=== PATIENT | female | born 1940 | race Caucasian/White ===

== ENCOUNTER 2016-12-01 15:28 | Emergency (ER) | payer OTHER ==
[~2016-12-01] VITALS: Ht 129.5 cm; Wt 49.0 kg
[~2016-12-01 15:28] MED LIST: ESOM1CAP6 PO; HYDR2TAB PO; POTA-243 PO; PRED5 PO; [UNRECOGNIZED DRUG - CODE]
[2016-12-01 15:33] VITALS: BP 109/73; PULSE 77; RESP 16; TEMP 98.2; O2SAT 94
[2016-12-01] MEDS ORDERED: LOVA20TA PO (15:51)
[2016-12-01] MEDS ORDERED: HYDR2TAB PO (15:51)
[2016-12-01] MEDS ORDERED: K-TA10TA PO (15:51)
[2016-12-01] MEDS ORDERED: [UNRECOGNIZED DRUG - CODE] PO (15:51)
[2016-12-01] MEDS ORDERED: ESOM0.1C PO (15:51)
[2016-12-01] MEDS ORDERED: NEXI20CA PO (15:51)
--- NOTE | 2016-12-01 16:04 | PD ---
HPI Chief Complaint: Injury Time Seen by Provider: 15:45 Travel History International Travel<30 days: No Contact w/Intl Traveler<30days: No Traveled to known affect area: No History of Present Illness HPI Patient presents to the emergency department requesting Ring removal from her right ring finger. Patient has history of rheumatoid arthritis and has intermittent swelling of her finger joints. She reports she had a minor twisting injury to the finger yesterday and the PIP joint began to swell making her rings tight. She was unable to remove the rings at home. She has mild pain in the finger, constant, 3-10 severity. She reports normal sensation in the digit. The extremity has a brisk cap refill. PFSH Past Medical History Narrative Medical Significant for rheumatoid arthritis GERD: Yes Past Surgical History Abdominal Surgery: Yes (3/4 STOMACH REMOVED) Other Surgery: Yes (TOE VASCULAR REPAIR) Social History Alcohol Use: Yes (2/DAY) Tobacco Use: Yes (3/4 PPD) Allergies-Medications (Allergen,Severity, Reaction): Coded Allergies: Penicillin (Verified Allergy, Intermediate, ITCH, 12/01/16) Reported Meds & Prescriptions Reported Meds & Active Scripts Active Reported Lovastatin 20 Mg Tab 20 Mg PO DAILY K-Tab (Potassium Chloride) 10 Meq Tab 10 Meq PO DAILY Hydromorphone (Hydromorphone HCl) 2 Mg Tab 2 Mg PO Q6H PRN Nexium (Esomeprazole DR) 20 Mg Capdr 20 Mg PO DAILY Travel Sickness (Dimenhydrinate) 50 Mg Tab 50 Mg PO Q6H PRN Review of Systems Except as stated in HPI: all other systems reviewed are Neg Physical Exam Narrative GENERAL: Well-nourished, well-developed patient. SKIN: Focused skin assessment warm/dry. HEAD: Normocephalic. EYES: No scleral icterus. No injection or drainage. NECK: Supple, trachea midline. No JVD or lymphadenopathy. MUSCULOSKELETAL: No cyanosis. Right fourth digit: Patient has 5 rings on digit. Mild swelling and PIP joint. Digit is warm with a brisk cap refill. Data Data Last Documented VS Vital Signs Date Time Temp Pulse Resp B/P Pulse Ox O2 Delivery O2 Flow Rate FiO2 12/01/16 15:33 98.2 77 16 109/73 94 MDM Medical Decision Making Medical Screen Exam Complete: Yes Emergency Medical Condition: Yes Differential Diagnosis Minor finger sprain versus RA causing PIP joint swelling Narrative Course 76 rolled female presents emergency department for ring removal on her right fourth digit. Patient has a history of RA with intermittent finger joint swelling. She reports a minor injury yesterday twisting of the right fourth digit which caused little bit of swelling and making her unable to get her rings off. Patient has currently 5 rings on that digit. The digit is neurovascularly intact. Ring will be removed with electric ring cutter. Largest most distal Ring removed with electric ring cutter. The remaining 4 rings on the finger are freely mobile but unable to get over the swollen PIP joint. Patient was encouraged to have these rings cut off. Patient refused. She stated she wanted to wait for the swelling to go down and then remove the rings herself. I discussed the possibility that the joint may continue to swell making future removal even more difficult than today this could potentially lead to digit ischemia in severe cases. She verbalizes understanding and decides to not have the rings cut off. She was encouraged to come back if she had any increasing pain and increasing swelling change in color or sensation of the digit. She agrees to plan Diagnosis Primary Impression: Finger sprain Qualified Code: S63.635A - Sprain of interphalangeal joint of left ring finger , initial encounter Referrals: Primary Care Physician Additional Instructions: Ice and elevate the extremity. Remove the rings and swelling goes down. Return to the emergency department if you have increasing pain or swelling or change in color sensation of the digit Disposition: 01 DISCHARGE HOME Condition: Stable Gabriela Monaco Dec 01, 2016 16:04
== END 2016-12-01 16:35 | disposition home or self-care (01) ==
LOC: PHEFT 15:28
DX: S63.635A Sprain of interphalangeal joint of left ring finger, initial encounter (principal); X58.XXXA Exposure to other specified factors, initial encounter; M06.9 Rheumatoid arthritis, unspecified
CPT/HCPCS: 99282

== ENCOUNTER 2016-12-23 16:49 | Inpatient (IN) | payer OTHER, MEDICARE ==
[~2016-12-23 16:49] MED LIST changes: -ESOM1CAP6 PO; +K-TA10TA PO; +LOVA20TA PO; +NEXI20CA PO; -POTA-243 PO; -PRED5 PO; -[UNRECOGNIZED DRUG - CODE]; +[UNRECOGNIZED DRUG - CODE] PO
[2016-12-23 17:00] VITALS: BP 131/75; PULSE 102; RESP 18; TEMP 98.4; O2SAT 95
--- NOTE | 2016-12-23 17:18 | PD ---
HPI Chief Complaint: weakness Time Seen by Provider: 17:05 Travel History International Travel<30 days: No Contact w/Intl Traveler<30days: No Traveled to known affect area: No History of Present Illness HPI 76-year-old female is brought by ambulance. Her daughter had left the house around 1:00. She get back to the house around 4. Her mother was very hot and sweaty. The room itself was quite hot. The patient does smoke about a pack a day and goes outside to smoke The daughter says that she seemed to have some slurring of her speech and she noted that the left side of her face was not walking working very well. She tried to stand her up and she had trouble walking. Patient is generally weak and does have trouble walking but she was unable to stand at all earlier. The patient does not believe that she is any weaker than usual. She denies any headache. She was slightly confused and able to walk year. Her daughter says that she is normally not at all confused. Patient denies any headache. She has no history of stroke or heart disease. She does have frequent dizziness which she takes meclizine. ANOther family member has raised concerned that she didn't seem right even yesterday. PFSH Past Medical History Arthritis: Yes (RA,OA) High Cholesterol: Yes Diminished Hearing: No GERD: Yes Past Surgical History Abdominal Surgery: Yes (3/4 STOMACH REMOVED) Other Surgery: Yes (TOE VASCULAR REPAIR, Fempop) Social History Alcohol Use: Yes (2/DAY) Tobacco Use: Yes (3/4 PPD) Substance Use: No Allergies-Medications (Allergen,Severity, Reaction): Coded Allergies: Penicillin (Verified Allergy, Intermediate, ITCH, 12/01/16) Reported Meds & Prescriptions Reported Meds & Active Scripts Active Reported Hydromorphone (Hydromorphone HCl) 2 Mg Tab 2 Mg PO Q6H PRN One Daily Multivitamin (Multivitamin) 1 Each Tablet Potassium 99 Mg Tablet Mobic (Meloxicam) 7.5 Mg Tab 7.5 Mg PO BID Pantoprazole (Pantoprazole Sodium) 40 Mg Tab 40 Mg PO DAILY Diphenhydramine (Diphenhydramine HCl) 25 Mg Cap 25 Mg PO DAILY Lovastatin 20 Mg Tab 40 Mg PO DAILY Travel Sickness (Dimenhydrinate) 50 Mg Tab 50 Mg PO Q6H PRN Review of Systems General / Constitutional: No: Fever Eyes: No: Diploplia, Blurred Vision HENT: Positive: Vertigo, No: Headaches Cardiovascular: No: Chest Pain or Discomfort, Palpitations Respiratory: No: Cough, Shortness of Breath Gastrointestinal: No: Vomiting, Diarrhea Genitourinary: No: Urgency, Frequency Musculoskeletal: Positive: Arthralgias, No: Myalgias Skin: No Rash, No Itching Neurologic: Positive: Weakness, Focal Abnormalities, Change in Mentation, No: Syncope Psychiatric: No: Anxiety, Depression Endocrine: No: Heat Intolerance Hematologic/Lymphatic: No: Easy Bruising Physical Exam Narrative GENERAL: Elderly female in no acute distress SKIN: Focused skin assessment warm/dry. HEAD: Atraumatic. Normocephalic. EYES: Pupils equal and round. No scleral icterus. No injection or drainage. ENT: No nasal bleeding or discharge. Mucous membranes pink and moist. NECK: Trachea midline. No JVD. CARDIOVASCULAR: Regular rate and rhythm. No murmur appreciated. RESPIRATORY: No accessory muscle use. Clear to auscultation. Breath sounds equal bilaterally. GASTROINTESTINAL: Abdomen soft, non-tender, nondistended. Hepatic and splenic margins not palpable. MUSCULOSKELETAL: No obvious deformities. No clubbing. No cyanosis. No edema. NEUROLOGICAL: Awake and alert. He does appear that the left side of the mouth does not move as much of the right side . She closes both eyes well, digital sales assistant are equal. There is no drift of the arms. She can hold both legs against gravity. We did stand the patient up and tested her gait. She has a slow shuffling gait which the daughter says is her normal gait but is better than she did at home. Patient is unable to give the year. She believes is 2076. Her speech appears clear at this time her daughter says is slightly slurred though not as severe as it was at home PSYCHIATRIC: Appropriate mood and affect; insight and judgment normal. Data Data Last Documented VS Vital Signs Date Time Temp Pulse Resp B/P Pulse Ox O2 Delivery O2 Flow Rate FiO2 12/23/16 18:35 16 98 Room Air 12/23/16 18:35 78 165/72 12/23/16 17:00 98.4 Orders Electrocardiogram (12/23/16 17:05) Complete Blood Count With Diff (12/23/16 17:05) Comprehensive Metabolic Panel (12/23/16 17:05) Prothrombin Time / Inr (Pt) (12/23/16 17:05) Act Partial Throm Time (Ptt) (12/23/16 17:05) Urinalysis - C+S If Indicated (12/23/16 17:05) Thyroid Stimulating Hormone (12/23/16 17:05) Ct Brain W/O Iv Contrast(Rout) (12/23/16 17:05) Aspirin (Aspirin) (12/23/16 17:45) Mri Brain W/O Contrast (12/23/16 17:39) Mra Brain W/O Contrast (Cow) (12/23/16 17:39) Mra Carotids W Contrast (12/23/16 17:39) Admit Order (Ed Use Only) (12/23/16 18:37) Labs Laboratory Tests Test 12/23/16 17:26 White Blood Count 13.5 TH/MM3 Red Blood Count 4.50 MIL/MM3 Hemoglobin 13.7 GM/DL Hematocrit 41.1 % Mean Corpuscular Volume 91.3 FL Mean Corpuscular Hemoglobin 30.3 PG Mean Corpuscular Hemoglobin 33.2 % Concent Red Cell Distribution Width 15.8 % Platelet Count 256 TH/MM3 Mean Platelet Volume 7.2 FL Neutrophils (%) (Auto) 82.0 % Lymphocytes (%) (Auto) 6.4 % Monocytes (%) (Auto) 6.6 % Eosinophils (%) (Auto) 0.3 % Basophils (%) (Auto) 4.7 % Neutrophils # (Auto) 11.1 TH/MM3 Lymphocytes # (Auto) 0.9 TH/MM3 Monocytes # (Auto) 0.9 TH/MM3 Eosinophils # (Auto) 0.0 TH/MM3 Basophils # (Auto) 0.6 TH/MM3 CBC Comment DIFF FINAL Differential Comment Prothrombin Time 10.4 SEC Prothromb Time International 0.9 RATIO Ratio Activated Partial 24.4 SEC Thromboplast Time Sodium Level 139 MEQ/L Potassium Level 4.0 MEQ/L Chloride Level 106 MEQ/L Carbon Dioxide Level 24.7 MEQ/L Anion Gap 8 MEQ/L Blood Urea Nitrogen 20 MG/DL Creatinine 0.98 MG/DL Estimat Glomerular Filtration 55 ML/MIN Rate Random Glucose 110 MG/DL Calcium Level 9.1 MG/DL Total Bilirubin 0.4 MG/DL Aspartate Amino Transf 25 U/L (AST/SGOT) Alanine Aminotransferase 16 U/L (ALT/SGPT) Alkaline Phosphatase 65 U/L Total Protein 7.3 GM/DL Albumin 3.2 GM/DL Thyroid Stimulating Hormone 1.610 uIU/ML 3rd Gen [facility] Medical Decision Making Medical Screen Exam Complete: Yes Emergency Medical Condition: Yes Medical Record Reviewed: Yes Differential Diagnosis A stat CT scan was obtained. There is no acute hemorrhage or mass effect. There is a small area of decreased attenuation involving the left frontal area which could represent small area of edema or be related to a remote insult. Aspirin has been given. I don't think the patient is a candidate for TPA in the timing is not at all clear. In addition her daughter seems to feel that she is getting better. Narrative Course Differential includes CVA, TIA, heat exhaustion. Patient does have some residual left-sided numbness of her face. She has been given aspirin. She'll be admitted for further evaluation the timing of these events are quite uncertain. The . daughter thinks she was normal at 1 in the afternoon though another family member is not so sure. In addition the patient has had considerable improvement so I do not think she is a candidate for TPA. She does have some residual weakness so this is probably not a TIA at this time Diagnosis Primary Impression: CVA (cerebral vascular accident) Oliver Vora MD Dec 23, 2016 17:17
--- NOTE | 2016-12-23 17:29 | RADRPT ---
EXAM DATE/TIME: 12/23/2016 17:01 [facility] COMPARISON: No previous studies available for comparison. INDICATIONS : Left sided facial drooping and slurred speech now resolved. RADIATION DOSE: 60.80 CTDIvol (mGy) MEDICAL HISTORY : None SURGICAL HISTORY : None. ENCOUNTER: Initial ACUITY: 1 day PAIN SCALE: 0/10 LOCATION: cranial TECHNIQUE: Multiple contiguous axial images were obtained of the head. Using automated exposure control and adj ustment of the mA and/or kV according to patient size, radiation dose was kept as low as reasonably a chievable to obtain optimal diagnostic quality images. DICOM format image data is available electro nically for review and comparison. FINDINGS: CEREBRUM: The ventricles are normal for age. No evidence of midline shift, mass lesion, or hemorrhage. There i s a subtle small area of decreased attenuation involving the left frontal lobe seen on images numbers 15 and 16 measuring up to approximately 2 cm in greatest diameter. No extra-axial fluid collections are seen. POSTERIOR FOSSA: The cerebellum and brainstem are intact. The 4th ventricle is midline. The cerebellopontine angle i s unremarkable. EXTRACRANIAL: The visualized portion of the orbits is intact. SKULL: The calvaria is intact. No evidence of skull fracture. CONCLUSION: 1. No acute hemorrhage or mass effect. 2. There is an apparent small area of decreased attenuation involving the left frontal lobe which cou ld represent a small area of edema or be related to a remote insult. Drew Kiran MD on December 23, 2016 at 17:25 Board Certified Radiologist. This report was verified electronically.
[2016-12-23] MEDS ORDERED: ASPIRIN 325 MG TAB PO ONE (17:45)
[2016-12-23] MEDS ORDERED: ONE-TAB14 (17:47)
[2016-12-23] MEDS ORDERED: PANT40TA3 PO (17:47)
[2016-12-23] MEDS ORDERED: MOBI7.5T PO (17:47)
[2016-12-23] MEDS ORDERED: DIPH25CA PO (17:47)
[2016-12-23] MEDS ORDERED: POTA99TA4 (17:47)
[2016-12-23 17:50] LABS: AUTOMATED NEUTROPHIL # 11.1 TH/MM3 (1.8-7.7); BASOPHIL # 0.6 TH/MM3 (0-0.2); BASOPHIL % 4.7 % (0.0-2.0); EOSINOPHIL % 0.3 % (0.0-4.0); HEMATOCRIT 41.1 % (35.0-46.0); LYMPH % 6.4 % (9.0-44.0); LYMPHOCYTE # 0.9 TH/MM3 (1.0-4.8); MEAN CELL VOLUME 91.3 FL (80.0-100.0); MEAN CORPUSCULAR HEMOGLOBIN 30.3 PG (27.0-34.0); MEAN CORPUSCULAR HGB CONC 33.2 % (32.0-36.0); MONO % 6.6 % (0.0-8.0); PLATELET COUNT 256 TH/MM3 (150-450); RED CELL DISTRIBUTION WIDTH 15.8 % (11.6-17.2); WHITE BLOOD COUNT 13.5 TH/MM3 (4.0-11.0)
[2016-12-23 17:54] LABS: CHLORIDE 106 MEQ/L (98-107); SODIUM (NA) 139 MEQ/L (136-145)
[2016-12-23] MEDS ORDERED: HYDR2TAB PO (17:56)
[2016-12-23 17:57] LABS: ANION GAP 8 MEQ/L (5-15); BICARBONATE 24.7 MEQ/L (21.0-32.0); BLOOD UREA NITROGEN 20 MG/DL (7-18)
[2016-12-23 17:59] LABS: APTT (PATIENT) 24.4 SEC (24.3-30.1); INTERNATIONAL NORMALIZED RATIO 0.9 RATIO; PROTHROMBIN TIME - PATIENT 10.4 SEC (9.8-11.6)
[2016-12-23 18:00] LABS: ALT (GPT) 16 U/L (10-53); AST (GOT) 25 U/L (15-37)
[2016-12-23 18:01] LABS: GLOMERULAR FILTRATION RATE 55 ML/MIN (>89)
[2016-12-23 18:02] LABS: TOTAL BILIRUBIN ADULT 0.4 MG/DL (0.2-1.0)
[2016-12-23 18:03] LABS: ALKALINE PHOSPHATASE 65 U/L (45-117)
[2016-12-23 18:04] VITALS: BP 144/83; PULSE 70; RESP 16; O2SAT 95
[2016-12-23 18:05] LABS: HEMO FLAGS DIFF FINAL
[2016-12-23 18:35] VITALS: BP 165/72; PULSE 78; RESP 16; O2SAT 98
--- NOTE | 2016-12-23 19:13 | RADRPT ---
EXAM DATE/TIME: 12/23/2016 18:55 [facility] COMPARISON: MRI BRAIN W/O CONTRAST, December 23, 2016, 18:55. INDICATIONS : Slurred speech. Weakness. Abnormal CT demonstrating low attenuation area in the lef t frontal lobe. MEDICAL HISTORY : Hypertension. Rheumatoid arthritis. SURGICAL HISTORY : Cholecystectomy. Gastric bypass. ENCOUNTER: Initial ACUITY: 1 day PAIN SCORE: 0/10 LOCATION: cranial Please note a normal MRA of the brain does not entirely exclude the possibility of a small aneurysm, nor the possibility of distal intracranial vessel disease. TECHNIQUE: 3D time of flight MRA was performed. Source images, multiplanar STS MIP, and 3D volum e MIP reconstructions were reviewed. FINDINGS: There is excellent visualization of the major intracranial arteries out to the second-order branch ve ssels. There is no evidence for aneurysm, vessel truncation or stenosis, and no evidence for vascula r malformation. CONCLUSION: Unremarkable exam. Drew Kiran MD on December 23, 2016 at 19:10 Board Certified Radiologist. This report was verified electronically.
--- NOTE | 2016-12-23 19:19 | RADRPT ---
EXAM DATE/TIME: 12/23/2016 18:55 [facility] COMPARISON: CT BRAIN W/O CONTRAST, December 23, 2016, 17:01. INDICATIONS : Slurred speech. Abnormal CT demonstrating low attenuation area in the left frontal lobe. Weakness. MEDICAL HISTORY : Hypertension. Rheumatoid arthritis. SURGICAL HISTORY : Cholecystectomy. Gastric bypass. ENCOUNTER: Initial ACUITY: 1 day PAIN SCORE: 0/10 LOCATION: cranial TECHNIQUE: Multiplanar, multisequence MRI of the brain was performed without contrast. FINDINGS: CEREBRUM: The ventricles are normal for age with mild to moderate atrophic change. No evidence of midline shift , mass lesion, hemorrhage or acute infarction. There is a focal area of encephalomalacia and gliosis involving the left frontal lobe corresponding to the abnormality on CT. No extraaxial fluid collectio ns are seen. The pituitary gland and suprasellar cistern are normal in configuration. WHITE MATTER: There is increased signal noted in the centrum semiovale and periventricular white matter consistent with chronic small vessel ischemic change. There is increased signal noted in the left frontal lobe a djacent to the encephalomalacia consistent with gliosis. POSTERIOR FOSSA: The cerebellum and brainstem are intact. The 4th ventricle is midline. The cerebellopontine angle is unremarkable. The cerebellar tonsils are normal in position. DIFFUSION IMAGING: No focal areas of restricted diffusion are seen. No evidence of acute infarction. EXTRACRANIAL: The visualized portions of the orbits and paranasal sinuses are unremarkable. CONCLUSION: 1. Focal area of encephalomalacia and gliosis involving left frontal lobe corresponding to the abnorm ality on CT. 2. No acute hemorrhage, mass or infarction. Drew Kiran MD on December 23, 2016 at 19:14 Board Certified Radiologist. This report was verified electronically.
[2016-12-23] MEDS ORDERED: SODIUM CHLOR 0.9% 1000 ML INJ 1,000 ML IV SCH (19:22)
[2016-12-23] MEDS ORDERED: DEXTROSE 50% IN WATER 50 ML VIAL(D50) IV PUSH PRN (19:30)
[2016-12-23] MEDS ORDERED: SODIUM CHLORIDE 0.9% FLUSH 5 ML FLUSH IV FLUSH PRN (19:30)
[2016-12-23] MEDS ORDERED: GLUCAGON 1 MG/ML VIAL OTHER PRN (19:30)
--- NOTE | 2016-12-23 19:36 | RADRPT ---
EXAM DATE/TIME: 12/23/2016 18:55 [facility] COMPARISON: No previous studies available for comparison. INDICATIONS : Weakness. Slurred speech. CONTRAST: 10 cc Omniscan (gadodiamide) IV MEDICAL HISTORY : Hypertension. Rheumatoid arthritis. SURGICAL HISTORY : Cholecystectomy. Gastric bypass. ENCOUNTER: Initial ACUITY: 1 day PAIN SCORE: 0/10 LOCATION: cranial Known MRI Precautions: Sedation utilized? No Anesthesia present? MRI reaction? If YES, explain: Percent stenosis is calculated using the diameter of the stenotic region over the diameter of the nor mal distal internal carotid artery. TECHNIQUE: Bolus infused MRA of the extracranial circulation was performed using a neurovascular coil. Post pro cessing was performed including rotating subvolume maximum intensity projections of each carotid lexy ry, rotating full volume maximum intensity projections of both carotid arteries, sagittal and coronal sliding thin slab reformations of each carotid artery, and left oblique sliding thin slab reformatio n through the aortic arch to include the origin of the arch branch vessels. FINDINGS: AORTIC ARCH: There is a three vessel origin of the great vessels from the aorta. There is evidence of high grade s tenosis at the origin of the brachiocephalic and left common carotid arteries. The left subclavian ar isiah origin is not well-visualized. RIGHT CAROTID: The common carotid artery is intact. The carotid bulb has a normal configuration with mild plaque no significant stenosis. The internal carotid artery lumen is smooth without stenosis. The external ca rotid artery is intact. LEFT CAROTID: The common carotid artery is intact. The carotid bulb has a normal configuration with mild plaque in no significant stenosis. The internal carotid artery lumen is smooth without stenosis. The external carotid artery is intact. VERTEBRALS: The vertebral arteries have a symmetric diameter. No stenotic lesions are seen. CONCLUSION: 1. High grade stenoses in the origin of the brachiocephalic and left common carotid arteries. The leander gin of the left subclavian artery is not well visualized. 2. Mild plaque in both carotid bulbs with no significant stenosis. Drew Kiran MD on December 23, 2016 at 19:30 Board Certified Radiologist. This report was verified electronically.
[2016-12-23] MEDS ORDERED: GADODIAMIDE PF 287 MG/ML 10 ML VIAL (for RAD MRI) IV ONE (19:43)
[2016-12-23] MEDS: HEPARIN SODIUM - SQ 10,000 UNITS/ML VIAL SQ SCH (20:22)
[2016-12-23] MEDS: INSULIN ASPART SUPPLEMENTAL SCALE SQ SCH (20:32)
[2016-12-23 21:00] VITALS: BP 131/85; PULSE 65; RESP 21; TEMP 98.9; O2SAT 96
[2016-12-23] MEDS ORDERED: SODIUM CHLORIDE 0.9% FLUSH 5 ML FLUSH IV FLUSH SCH (21:00)
[2016-12-23] MEDS ORDERED: HYDROmorphone HCL PF 1 MG/ML VIAL IV PUSH ONE (21:45)
[2016-12-23 22:00] VITALS: PULSE 65
[2016-12-23 22:25] VITALS: O2SAT 98
[2016-12-24] VITALS (15 sets, daily range): BP systolic 90–147; BP diastolic 71–84; PULSE 51–63; RESP 14–27; TEMP 97.8–98.7; O2SAT 94–98
[2016-12-24] MEDS: INSULIN ASPART SUPPLEMENTAL SCALE SQ SCH ×4 (05:27→20:58)
[2016-12-24] MEDS: HEPARIN SODIUM - SQ 10,000 UNITS/ML VIAL SQ SCH ×3 (05:27→20:50)
[2016-12-24] MEDS ORDERED: GLUCAGON 1 MG/ML VIAL OTHER PRN (08:45)
[2016-12-24] MEDS ORDERED: SODIUM CHLORIDE 0.9% FLUSH 5 ML FLUSH IV FLUSH PRN (08:45)
[2016-12-24] MEDS ORDERED: DEXTROSE 50% IN WATER 50 ML VIAL(D50) IV PUSH PRN (08:45)
[2016-12-24] MEDS ORDERED: ASPIRIN 325 MG TAB PO SCH (09:00)
[2016-12-24] MEDS: SODIUM CHLORIDE 0.9% FLUSH 5 ML FLUSH IV FLUSH SCH ×2 (09:00→20:50)
[2016-12-24] MEDS: ASPIRIN EC 325 MG TABEC PO SCH (09:11)
[2016-12-24 09:14] LABS: HDL CHOLESTEROL 67.5 MG/DL (40.0-60.0)
--- NOTE | 2016-12-24 09:31 | MB ---
cc: AALIYAH SRIVASTAVA DATE OF CONSULTATION: 12/24/2016 REASON FOR CONSULTATION Stroke. HISTORY OF PRESENT ILLNESS Ms. White is a very pleasant 76-year-old female who yesterday developed the acute onset of numbness on the left side of her face and also she states the left arm. She felt somewhat weak in the left arm as well and presented to the hospital, to the ER. This morning she feels back to normal, feels her strength is normal on the left and also feels that the numbness has resolved. The patient was last seen normal yesterday at 01:00 p.m. after the daughter left the house. When the daughter returned around 4:00, her mother was hot and diaphoretic, the room itself was hot. At that time the daughter noted slurred speech and the left side of her face was not working well. She had trouble walking. She brought her to the ER. I spoke with Dr. Mi yesterday evening. Because of the time frame she was well outside of the window for TPA consideration or endovascular consideration. This morning she is much better. She denies any stroke symptoms in the past. PAST MEDICAL HISTORY She denies any previous stroke history. Abdominal surgery, three-quarters of stomach removed. Toe vascular repair. ALLERGIES PENICILLIN. MEDICATIONS AT HOME 1. Hydromorphone 2 mg q.6 hours as needed. 2. Multivitamin. 3. Potassium. 4. Mobic. 5. Pantoprazole 40 mg daily. 6. Diphenhydramine 25 mg daily. 7. Lovastatin 20 mg daily. SOCIAL HISTORY She does smoke. NEUROLOGIC EXAMINATION VITAL SIGNS: Blood pressure is 90/71, pulse 62 regular. HIGH CORTICAL FUNCTIONS: equal, reactive. The extraocular movements are intact. On motor examination there is 5/5 strength of all groups in both upper and lower extremities. There is no drift. Fine motor skills are normal. Sensory exam is intact. Reflexes 2+ symmetric. EKG Normal sinus rhythm with occasional supraventricular premature complexes, no sign of atrial fibrillation, however. IMAGING STUDIES She did have a CT of the brain done which showed an area of abnormality in the left frontal lobe area of decreased attenuation. She has since had an MRI of the brain and there is a focal area of encephalomalacia and gliosis involving the left frontal lobe. No acute . The left subclavian artery is not well visualized, mild plaque in both carotid bulbs with no significant stenosis. LABORATORY DATA The white count is 13,500, hemoglobin 13.7, hematocrit 41.1%, platelet count 256,000. Sodium is 139, potassium 4, chloride 106, C02 24.7, BUN is 20, creatinine 0.98, GFR is 55, AST 25, ALT 16. Lipid panel currently pending. PT 10.4, INR 0.9, APTT 24.4. IMPRESSION 1. Probable right hemisphere TIA which is now resolved. 2. Probable old stroke in the left frontal area as evidenced on the MRI finding and CT finding. 3. A high-grade stenosis of the left common carotid artery and left brachiocephalic artery. RECOMMENDATIONS Start aspirin 325 mg daily. Encouraged the patient to stop smoking. If the LDL is elevated would recommend statin therapy. Will get an echocardiogram, monitor cardiac stenosis. However, this is clearly not the cause of her current symptoms. Therefore, I feel outpatient evaluation would be appropriate. The patient states she is not sure that she would agree to any intervention anyway at this time. If no particular cause of her TIA is identified, suggest possible cardiology evaluation as an outpatient to see if she would be a candidate for long-term cardiac technician such as the LIN[employer] recorder. MD TONIE Arndt/[facility] /8:34 AM /9:30 AM
--- NOTE | 2016-12-24 11:12 | HHI.HP ---
HPI [facility] Hospitalists Primary Care Physician Unknown Admission Diagnosis CVA Diagnoses: Chief Complaint: numbness left face and left arm Travel History International Travel<30 Days: No Contact w/Intl Traveler <30 Da: No Traveled to Known Affected Are: No History of Present Illness This is a 76-year-old female with past medical history as below who presents to [facility] complaining of acute onset of numbness of the left side of her face have the left arm. The patient also states she felt weak on the left arm as she states that she could not climb up to her bed. The patient was last seen normal yesterday at 1 PM after her daughter who is at bedside during this interview, states left her in the house. The patient's daughter states that she return about 4 PM and noticed that her mother was hot and diaphoretic, however the recommendation was not on. At the time the patient's daughter noted some slurred speech and some left facial droop as well as difficulty ambulating. She decided then to bring the patient to the emergency department where she was evaluated by the emergency department by means of a CT of the head which is negative for acute stroke but had some findings consistent with an old stroke. They ED physician contacted the neurologist and because of the timeframe she was well outside of the window for TPA consideration or endovascular consideration as well. The patient is morning feels much better, weakness has substantially improved and states that the numbness has also subsided. Otherwise denies any palpitations, dizziness, double vision, blurry vision, chest pain, short of breath, dysuria, abdominal pain. The patient states she has diarrhea but this is chronic and it has been the same way for years. Review of Systems As per HPI, other systems reviewed by me and negative. Past Family Social History Past Medical History Dumping syndrome with chronic diarrhea Chronic back pain Scoliosis Peptic ulcer disease GERD Peripheral arterial disease Hyperlipidemia Past Surgical History Subtotal gastrectomy Cholecystectomy Femoropopliteal bypass of the left lower extremity Left carotid endarterectomy. Reported Medications Reported Meds & Active Scripts Active Reported Hydromorphone (Hydromorphone HCl) 2 Mg Tab 2 Mg PO Q6H PRN One Daily Multivitamin (Multivitamin) 1 Each Tablet Potassium 99 Mg Tablet Mobic (Meloxicam) 7.5 Mg Tab 7.5 Mg PO BID Pantoprazole (Pantoprazole Sodium) 40 Mg Tab 40 Mg PO DAILY Diphenhydramine (Diphenhydramine HCl) 25 Mg Cap 25 Mg PO DAILY Lovastatin 20 Mg Tab 40 Mg PO DAILY Travel Sickness (Dimenhydrinate) 50 Mg Tab 50 Mg PO Q6H PRN Allergies: Coded Allergies: Penicillin (Verified Allergy, Intermediate, ITCH, 12/01/16) Active Ordered Medications Current Medications Medications (Trade) Dose Ordered Sig/Vipul Route Start Time Stop Time Status Last Admin (Heparin Inj) 5,000 units Q8H SQ 12/23/16 20:00 12/24/16 12:07 (NS Flush) 2 ml BID IV FLUSH 12/24/16 09:00 IV Flush 2 ml 2 ml UNSCH PRN IV FLUSH 12/24/16 08:45 (NS 1000 ml Inj) 1,000 ml @ 70 mls/hr [id number] IV 12/24/16 08:33 12/24/16 12:04 (NovoLOG SUPPLEMENTAL SCALE) 1 ACHS SQ 12/24/16 11:00 (D50w (Vial) Inj) 50 ml UNSCH PRN IV PUSH 12/24/16 08:45 (Glucagon Inj) 1 mg UNSCH PRN OTHER 12/24/16 08:45 (Ecotrin Ec) 325 mg DAILY PO 12/24/16 09:00 12/24/16 09:11 (Dilaudid) 2 mg Q6H PRN PO 12/24/16 11:30 12/24/16 12:03 (Pravachol) 40 mg DAILY PO 12/24/16 12:00 12/24/16 12:07 (Mobic) 7.5 mg BID PO 12/24/16 21:00 (Protonix) 40 mg DAILY PO 12/25/16 09:00 (Habitrol 21 Mg Patch.24 Hr) 1 patch DAILY T-DERMAL 12/24/16 15:15 Miscellaneous Information 1 DAILY T-DERMAL 12/25/16 09:00 Family History There is a family history of diabetes on the patient's father and sister. Social History The patient smokes one pack per day. The patient drinks alcohol occasionally The patient is a and lives with her daughter. Physical Exam Vital Signs Vital Signs Date Time Temp Pulse Resp B/P Pulse Ox O2 Delivery O2 Flow Rate FiO2 12/24/16 08:00 51 12/24/16 08:00 98.5 63 18 147/78 98 12/24/16 04:00 97.8 59 20 90/71 96 12/24/16 04:00 62 12/24/16 02:00 58 12/24/16 00:00 58 12/23/16 22:25 98 21 12/23/16 22:00 65 12/23/16 21:00 98.9 65 21 131/85 96 12/23/16 18:35 16 98 Room Air 12/23/16 18:35 78 16 165/72 98 Room Air 12/23/16 18:04 70 16 144/83 95 Room Air 12/23/16 17:00 98.4 102 18 131/75 95 Physical Exam GENERAL: This is a very thin and fragile 76-year-old female, in no apparent distress. SKIN: No rashes, ecchymoses or lesions. Cool and dry. HEAD: Atraumatic. Normocephalic. No temporal or scalp tenderness. EYES: Pupils equal round and reactive. Extraocular motions intact. No scleral icterus. No injection or drainage. ENT: Nose without bleeding, purulent drainage or septal hematoma. Throat without erythema, tonsillar hypertrophy or exudate. Uvula midline. Airway patent. NECK: Trachea midline. No JVD or lymphadenopathy. Supple, nontender, no meningeal signs. CARDIOVASCULAR: Regular rate and rhythm without murmurs, gallops, or rubs. RESPIRATORY: Clear to auscultation. Breath sounds equal bilaterally. No wheezes , rales, or rhonchi. GASTROINTESTINAL: Abdomen soft, non-tender, nondistended. No hepato-splenomegaly , or palpable masses. No guarding. MUSCULOSKELETAL: Extremities without clubbing, cyanosis, or edema. No joint tenderness, effusion, or edema noted. No calf tenderness. Negative Homans sign bilaterally. NEUROLOGICAL: Awake and alert. Cranial nerves II through XII intact. Motor and sensory grossly within normal limits. Five out of 5 muscle strength in all muscle groups. Normal speech. Laboratory Laboratory Tests Test 12/23/16 12/24/16 17:26 04:30 White Blood Count 13.5 Red Blood Count 4.50 Hemoglobin 13.7 Hematocrit 41.1 Mean Corpuscular Volume 91.3 Mean Corpuscular Hemoglobin 30.3 Mean Corpuscular Hemoglobin 33.2 Concent Red Cell Distribution Width 15.8 Platelet Count 256 Mean Platelet Volume 7.2 Neutrophils (%) (Auto) 82.0 Lymphocytes (%) (Auto) 6.4 Monocytes (%) (Auto) 6.6 Eosinophils (%) (Auto) 0.3 Basophils (%) (Auto) 4.7 Neutrophils # (Auto) 11.1 Lymphocytes # (Auto) 0.9 Monocytes # (Auto) 0.9 Eosinophils # (Auto) 0.0 Basophils # (Auto) 0.6 CBC Comment DIFF FINAL Differential Comment Prothrombin Time 10.4 Prothromb Time International 0.9 Ratio Activated Partial 24.4 Thromboplast Time Sodium Level 139 Potassium Level 4.0 Chloride Level 106 Carbon Dioxide Level 24.7 Anion Gap 8 Blood Urea Nitrogen 20 Creatinine 0.98 Estimat Glomerular Filtration 55 Rate Random Glucose 110 Calcium Level 9.1 Total Bilirubin 0.4 Aspartate Amino Transf 25 (AST/SGOT) Alanine Aminotransferase 16 (ALT/SGPT) Alkaline Phosphatase 65 Total Protein 7.3 Albumin 3.2 Thyroid Stimulating Hormone 1.610 3rd Gen Triglycerides Level 75 Cholesterol Level 132 LDL Cholesterol 50 HDL Cholesterol 67.5 Cholesterol/HDL Ratio 1.95 Result Diagram: 12/23/16 1726 12/23/16 1726 Imaging Current Medications Medications (Trade) Dose Ordered Sig/Vipul Route Start Time Stop Time Status Last Admin (Heparin Inj) 5,000 units Q8H SQ 12/23/16 20:00 12/24/16 12:07 (NS Flush) 2 ml BID IV FLUSH 12/24/16 09:00 IV Flush 2 ml 2 ml UNSCH PRN IV FLUSH 12/24/16 08:45 (NS 1000 ml Inj) 1,000 ml @ 70 mls/hr [id number] IV 12/24/16 08:33 12/24/16 12:04 (NovoLOG SUPPLEMENTAL SCALE) 1 ACHS SQ 12/24/16 11:00 (D50w (Vial) Inj) 50 ml UNSCH PRN IV PUSH 12/24/16 08:45 (Glucagon Inj) 1 mg UNSCH PRN OTHER 12/24/16 08:45 (Ecotrin Ec) 325 mg DAILY PO 12/24/16 09:00 12/24/16 09:11 (Dilaudid) 2 mg Q6H PRN PO 12/24/16 11:30 12/24/16 12:03 (Pravachol) 40 mg DAILY PO 12/24/16 12:00 12/24/16 12:07 (Mobic) 7.5 mg BID PO 12/24/16 21:00 (Protonix) 40 mg DAILY PO 12/25/16 09:00 (Habitrol 21 Mg Patch.24 Hr) 1 patch DAILY T-DERMAL 12/24/16 15:15 Miscellaneous Information 1 DAILY T-DERMAL 12/25/16 09:00 Assessment and Plan Problem List: (1) TIA (transient ischemic attack) ICD Code: G45.9 Status: Acute Plan: This is a 76-year-old female with past medical history significant for peripheral vascular disease, arthritis, rheumatoid arthritis, tobacco abuse and hyperlipidemia who presents complaining of neurological symptoms consisting of left upper extremity numbness and left facial numbness associated with weakness which has completely resolved. CT of the head was negative for acute hemorrhage or mass effect. There is an apparent small area of decreased attenuation involving the left frontal lobe which could represent a small area of edema or be related to remote insult. MRI of the brain showed a focal area of encephalomalacia and gliosis involving left frontal lobe corresponding to the abnormality seen on CT, likely due to an old stroke. Admit the patient to the floor - patient had an ABCD 2 score of 4 upon presentation to the emergency department Monitor vital signs, neurochecks every 4 hours Likely TIA since MRI negative and all symptoms almost resolved PT evaluation appreciated. The patient will need rehabilitation placement. Continue aspirin, statin Neurologic consultation appreciated. Follow-up 2-D echocardiogram MRA neck shows high-grade stenosis in the origin of the brachiocephalic and left common carotid arteries. However as per neurology this is not the cause of her current symptoms so will defer this for outpatient follow-up and referral to a vascular surgeon. F no particular cause of TIAs identified, neurology recommends cardiogenic relations an outpatient to see if she will be a candidate for long-term playground monitor such as a Ling Q recorder. (2) Rheumatoid arthritis ICD Code: M06.9 Status: Acute Plan: To be stable. Continue meloxicam and oral opiates. (3) Tobacco abuse ICD Code: Z72.0 Status: Acute Plan: Advised smoking cessation. Will place on nicotine patch. (4) HLD (hyperlipidemia) ICD Code: E78.5 Status: Acute Plan: Seems to be controlled LDL is 50. Continue statin. (5) Scoliosis ICD Code: M41.9 Status: Acute Plan: With chronic back pain. Continue mobic and Dilaudid which she gets as an outpatient. (6) Left carotid artery stenosis ICD Code: I65.22 Status: Acute Plan: Neck MRA shows high-grade stenosis in the origin of the brachiocephalic and left common carotid arteries. As per neurology recommendations this could be followed as an outpatient. And tingling on Toprol therapy with aspirin. (7) Leukocytosis ICD Code: D72.829 Status: Acute Plan: Likely reactive. No signs of infection. Continue to monitor CBC. Assessment and Plan DVT prophylaxis: SCDs, heparin subcutaneous Discussed Condition With ED physician, patient, RN Physician Certification 2 Midnight Certification Type: Admission for Inpatient Services Order for Inpatient Services The services are ordered in accordance with Medicare regulations or non- Medicare payer requirements, as applicable. In the case of services not specified as inpatient-only, they are appropriately provided as inpatient services in accordance with the 2-midnight benchmark. Estimated LOS (days): 2 days is the estimated time the patient will need to remain in the hospital, assuming treatment plan goals are met and no additional complications. Post-Hospital Plan: SNF Problem Qualifiers (1) Rheumatoid arthritis: Qualified Code: M06.9 - Rheumatoid arthritis, involving unspecified site, unspecified rheumatoid factor presence (2) Leukocytosis: Qualified Code: D72.829 - Leukocytosis, unspecified type Tanvir Humphrey MD Dec 24, 2016 11:12
[2016-12-24] MEDS: HYDROmorphone HCL 2 MG TAB PO PRN (12:03)
[2016-12-24] MEDS: SODIUM CHLOR 0.9% 1000 ML INJ 1,000 ML IV SCH (12:04)
[2016-12-24] MEDS: PRAVASTATIN SOD 40 MG TAB PO SCH (12:07)
--- NOTE | 2016-12-24 13:12 | EKG ---
Date Performed: 12/23/2016 Time Performed: 17:21:51 PTAGE: 76 years EKG: Sinus rhythm WITH OCCASIONAL SUPRAVENTRICULAR PREMATURE COMPLEXES POSSIBLE LEFT ATRIAL ENLARGEMENT INFERIOR MYOCA RDIAL INFARCTION ABNORMAL ECG NO PREVIOUS TRACING DOCTOR: Bolivar Marr Interpretating Date/Time 12/24/2016 13:11:02
[2016-12-24] MEDS: NICOTINE 21 MG/24 HR PATCH T-DERMAL SCH (15:34)
[2016-12-24 16:54] LABS: HEMOGLOBIN A1a 1.1 %; HEMOGLOBIN A1b 0.8 %; HEMOGLOBIN Ao 85.3 %; HEMOGLOBIN F 1.2 %; HEMOGLOBIN LA1C 1.7 %; HEMOGLOBIN P3 5.3 %
[2016-12-24] MEDS: MELOXICAM 7.5 MG TAB PO SCH (20:50)
[2016-12-25] VITALS (18 sets, daily range): BP systolic 117–197; BP diastolic 71–105; PULSE 60–82; RESP 20–37; TEMP 97.7–98.7; O2SAT 95–98
[2016-12-25] MEDS: SODIUM CHLOR 0.9% 1000 ML INJ 1,000 ML IV SCH ×2 (01:51→20:18)
[2016-12-25] MEDS: HYDROmorphone HCL 2 MG TAB PO PRN (02:40)
[2016-12-25] MEDS: HEPARIN SODIUM - SQ 10,000 UNITS/ML VIAL SQ SCH ×3 (03:02→20:18)
[2016-12-25] MEDS: INSULIN ASPART SUPPLEMENTAL SCALE SQ SCH ×4 (06:43→20:30)
[2016-12-25 08:46] LABS: AUTOMATED NEUTROPHIL # 4.5 TH/MM3 (1.8-7.7); BASOPHIL # 0.1 TH/MM3 (0-0.2); BASOPHIL % 0.8 % (0.0-2.0); EOSINOPHIL # 0.2 TH/MM3 (0-0.4); EOSINOPHIL % 3.3 % (0.0-4.0); HEMO FLAGS DIFF FINAL; MEAN CORPUSCULAR HEMOGLOBIN 29.8 PG (27.0-34.0); MEAN CORPUSCULAR HGB CONC 33.1 % (32.0-36.0); NEUT % 59.9 % (16.0-70.0); PLATELET COUNT 291 TH/MM3 (150-450); RED BLOOD COUNT 4.78 MIL/MM3 (4.00-5.30); WHITE BLOOD COUNT 7.5 TH/MM3 (4.0-11.0)
[2016-12-25 08:47] LABS: BLOOD, URINE SMALL (NEG); GLUCOSE,URINE 250 mg/dL (NEG); KETONE, URINE NEG (NEG); NITRITE,URINE NEG (NEG)
[2016-12-25 08:48] LABS: METHOD OF COLLECTION CLEAN CATCH; URINE COLOR STRAW (YELLW/STRAW)
[2016-12-25 08:51] LABS: COMMENT (UR) CULT NOT INDICATED; CULTURE IF INDICATED CULT NOT INDICATED; RBC, URINE 0-3 /hpf (0-3); WBC, URINE 0-2 /hpf (0-5)
[2016-12-25 08:54] LABS: CHLORIDE 108 MEQ/L (98-107); POTASSIUM 3.5 MEQ/L (3.5-5.1); SODIUM (NA) 141 MEQ/L (136-145)
[2016-12-25 08:58] LABS: ANION GAP 6 MEQ/L (5-15); BICARBONATE 26.9 MEQ/L (21.0-32.0); BLOOD UREA NITROGEN 10 MG/DL (7-18)
[2016-12-25] MEDS: SODIUM CHLORIDE 0.9% FLUSH 5 ML FLUSH IV FLUSH SCH ×2 (09:00→20:18)
[2016-12-25] MEDS: REMOVE OLD PATCH T-DERMAL SCH (09:00)
[2016-12-25] MEDS: ASPIRIN EC 325 MG TABEC PO SCH (09:00)
[2016-12-25] MEDS: NICOTINE 21 MG/24 HR PATCH T-DERMAL SCH (09:00)
[2016-12-25] MEDS: MELOXICAM 7.5 MG TAB PO SCH ×2 (09:00→20:19)
[2016-12-25] MEDS: PANTOPRAZOLE SOD 40 MG DELAYED RELEASE TAB PO SCH (09:00)
[2016-12-25 09:01] LABS: ALT (GPT) 15 U/L (10-53); AST (GOT) 23 U/L (15-37); GLOMERULAR FILTRATION RATE 64 ML/MIN (>89)
[2016-12-25] MEDS: PRAVASTATIN SOD 40 MG TAB PO SCH (09:02)
[2016-12-25 09:03] LABS: TOTAL BILIRUBIN ADULT 0.5 MG/DL (0.2-1.0)
[2016-12-25 09:04] LABS: ALKALINE PHOSPHATASE 65 U/L (45-117)
--- NOTE | 2016-12-25 12:13 | RADRPT ---
EXAM DATE/TIME: 12/25/2016 11:45 [facility] COMPARISON: MRI BRAIN W/O CONTRAST, December 23, 2016, 18:55. CT BRAIN W/O CONTRAST, December 23, 2016, 17:01. INDICATIONS : Altered mental status. RADIATION DOSE: 61.46 CTDIvol (mGy) MEDICAL HISTORY : None SURGICAL HISTORY : Tonsillectomy. Cataract. Corneal surgery. ENCOUNTER: Initial ACUITY: 1 day PAIN SCALE: 0/10 LOCATION: cranial TECHNIQUE: Multiple contiguous axial images were obtained of the head. Using automated exposure control and adj ustment of the mA and/or kV according to patient size, radiation dose was kept as low as reasonably a chievable to obtain optimal diagnostic quality images. DICOM format image data is available electro nically for review and comparison. FINDINGS: There is no evidence for intracranial hemorrhage, mass effect, mass lesions, or edema. The visualize d bony structures appear intact. Slight degree of brain atrophy is seen. Slight periventricular whit e matter changes are seen nonspecific mostly consistent with chronic small vessel ischemic changes. There are no signs of acute infarction for technique. Slight left frontal lobe encephalomalacia has n ot changed. CONCLUSION: Slight atrophic and small vessel ischemic changes without any evidence for acute hemorrhage or mass effect. Scar Do MD on December 25, 2016 at 12:10 Board Certified Radiologist. This report was verified electronically.
--- NOTE | 2016-12-25 12:27 | ECHRPT ---
Indication: CVA/TIA CONCLUSIONS Normal left ventricular size. Mild concentric left ventricular hypertrophy. The left ventricular systolic function is normal with an estimated ejection fraction in the range of 55-60%. Doppler parameters are consistent with impaired left ventricular relaxtion (grade 1 diastolic dysfun ction). There appears to be a hypokinetic posterior wall. This possibly has been connected to the pap muscle on the posterior inferior side. BP: 121 / 71 HR: 62 Rhythm: Sinus and , Atrial fibrillation, PVCs MEASUREMENTS (Male / Female) Normal Values Technical Quality:Fair 2D ECHO LV Diastolic Diameter PLAX 4.7 cm 4.2 - 5.9 / 3.9 - 5.3 cm LV Systolic Diameter PLAX 3.5 cm IVS Diastolic Thickness 1.4 cm 0.6 - 1.0 / 0.6 - 0.9 cm LVPW Diastolic Thickness 1.3 cm 0.6 - 1.0 / 0.6 - 0.9 cm LV Relative Wall Thickness 0.6 LVOT Diameter 1.8 cm Aortic Root Diameter 2.8 cm LA Systolic Diameter LX 3.1 cm 3.0 - 4.0 / 2.7 - 3.8 cm M-MODE AV Cusp Separation MM 2.0 cm DOPPLER AV Peak Velocity 135.7 cm/s AV Peak Gradient 7.4 mmHg AV Mean Gradient 3.7 mmHg AV Velocity Time Integral 28.1 cm LVOT Peak Velocity 88.0 cm/s LVOT Peak Gradient 3.1 mmHg LVOT Velocity Time Integral 19.3 cm AV Area Cont Eq vti 1.7 cm AV Area Cont Eq pk 1.7 cm Mitral E Point Velocity 76.5 cm/s Mitral A Point Velocity 105.0 cm/s Mitral E to A Ratio 0.7 LV E' Lateral Velocity 5.7 cm/s Mitral E to LV E' Lateral Ratio 13.5 LV E' Septal Velocity 2.9 cm/s Mitral E to LV E' Septal Ratio 26.2 TR Peak Velocity 347.0 cm/s TR Peak Gradient 48.2 mmHg PV Peak Velocity 69.2 cm/s PV Peak Gradient 1.9 mmHg FINDINGS LEFT VENTRICLE Normal left ventricular size. Mild concentric left ventricular hypertrophy. The left ventricular systolic function is normal with an estimated ejection fraction in the range of 55-60%. Doppler parameters are consistent with impaired left ventricular relaxtion (grade 1 diastolic dysfun ction). There appears to be a hypokinetic posterior wall. This possibly has been connected to the pap muscle on the posterior inferior side. MITRAL VALVE Mild thickening of the mitral valve leaflets.moderate mitral valve regurgitation. After evaluating the valve carefully there are more than 1 jets of MR at the valve. Bennie Abrams MD (Electronically Signed) Final Date:25 December 2016 12:25
--- NOTE | 2016-12-25 16:42 | HHI.PR ---
Subjective Remarks Follow-up for TIA. RN informed me that the patient was increasingly confused since last night. The patient's son-in-law is at bedside and states she has been out of touch with reality talking about a nearby etc. The patient does tell me things out of context on interview. Admits to night sweats and chills. Denies any dysuria although states she has to urinate frequently due to drinking a lot of water. She denies any chest pain, shortness of breath, abdominal pain. She does have chronic diarrhea. Son-in-law denies patient having any vomiting. Objective Vitals Vital Signs Date Time Temp Pulse Resp B/P Pulse Ox O2 Delivery O2 Flow Rate FiO2 12/25/16 15:00 72 12/25/16 14:00 72 12/25/16 13:00 82 12/25/16 12:00 97.7 78 37 117/82 98 12/25/16 12:00 78 12/25/16 08:00 80 12/25/16 08:00 98.7 72 33 118/89 98 12/25/16 04:00 62 12/25/16 04:00 97.9 62 26 121/71 96 12/25/16 00:00 98.2 60 26 119/82 95 12/25/16 00:00 60 12/24/16 20:00 60 12/24/16 20:00 97.8 60 26 120/76 96 12/24/16 20:00 97 21 I/O 12/24/16 12/24/16 12/24/16 12/25/16 12/25/16 12/25/16 07:00 15:00 23:00 07:00 15:00 23:00 Intake Total 514 ml 1053 ml 800 ml 800 ml Output Total 400 ml 400 ml 800 ml 700 ml Balance 114 ml 653 ml 0 ml 100 ml Intake Oral 360 ml 240 ml 240 ml IV Total 514 ml 693 ml 560 ml 560 ml Output Urine Total 400 ml 400 ml 800 ml 700 ml # Bowel Movements 1 Result Diagram: 12/25/1682412/25/16824 Imaging Last Impressions Head CT 12/25/16 0807 Signed Impressions: Service Date/Time: Sunday, December 25, 2016 11:45 - CONCLUSION: Slight atrophic and small vessel ischemic changes without any evidence for acute hemorrhage or mass effect. Scar Do MD Neck Magnetic Resonance Angiography 12/23/161738 Signed Impressions: Service Date/Time: Friday, December 23, 2016 18:55 - CONCLUSION: 1. High grade stenoses in the origin of the brachiocephalic and left common carotid arteries. The origin of the left subclavian artery is not well visualized. 2. Mild plaque in both carotid bulbs with no significant stenosis. Drew Kiran MD Head Magnetic Resonance Angiography 12/23/161738 Signed Impressions: Service Date/Time: Friday, December 23, 2016 18:55 - CONCLUSION: Unremarkable exam. Drew Kiran MD Brain MRI 12/23/161738 Signed Impressions: Service Date/Time: Friday, December 23, 2016 18:55 - CONCLUSION: 1. Focal area of encephalomalacia and gliosis involving left frontal lobe corresponding to the abnormality on CT. 2. No acute hemorrhage, mass or infarction. Drew Kiran MD Objective Remarks GENERAL: Elderly well-developed patient in no apparent distress. SKIN: Warm and dry. HEAD: Atraumatic. Normocephalic. EYES: No scleral icterus. No injection or drainage. CARDIOVASCULAR: Normal rate and irregular irregular rhythm. RESPIRATORY: No accessory muscle use. Clear to auscultation. Breath sounds equal bilaterally. GASTROINTESTINAL: Abdomen soft, non-tender, nondistended. MUSCULOSKELETAL: Swollen joints of the hands. No lower extremity edema bilaterally. NEUROLOGICAL: Awake and alert. Oriented to place, city, state, year, and president. She does not know the month. She mentions things out of context. Difficulty following commands. No definite facial droop although R lip appears slightly lower. Initially L arm appeared slightly weaker than R but upon subsequent evaluation strength in both arms is equal 5/5. 5/5 strength RLE. 4+/ 5 strength LLE. Normal speech. PSYCHIATRIC: Appropriate mood and affect. Urinary Catheter: No Vascular Central Line Catheter: No A/P Problem List: (1) TIA (transient ischemic attack) ICD Code: G45.9 Status: Acute (2) Rheumatoid arthritis ICD Code: M06.9 Status: Acute (3) Tobacco abuse ICD Code: Z72.0 Status: Acute (4) HLD (hyperlipidemia) ICD Code: E78.5 Status: Acute (5) Scoliosis ICD Code: M41.9 Status: Acute (6) Left carotid artery stenosis ICD Code: I65.22 Status: Acute (7) Leukocytosis ICD Code: D72.829 Status: Acute Assessment and Plan Altered mental status Acute. RN states patient increasingly confused since last night. Son-in-law believes patient has some baseline memory issues. Patient appears well physically, but does speak out of context although is relatively well oriented. Differentials include dementia, infection, delirium from hospital setting, medication reaction, or related to TIA. -CBC with normal WBC count. BMP unremarkable. Ammonia level normal. UA reviewed with no evidence of infection. Repeat head CT with slight atrophic and small vessel ischemic changes but no evidence of acute hemorrhage or mass effect. Patient on pain medication chronically at home. TIA (transient ischemic attack) This is a 76-year-old female with past medical history significant for peripheral vascular disease, arthritis, rheumatoid arthritis, tobacco abuse and hyperlipidemia who presents complaining of neurological symptoms consisting of left upper extremity numbness and left facial numbness associated with weakness which has completely resolved. CT of the head was negative for acute hemorrhage or mass effect. There is an apparent small area of decreased attenuation involving the left frontal lobe which could represent a small area of edema or be related to remote insult. MRI of the brain showed a focal area of encephalomalacia and gliosis involving left frontal lobe corresponding to the abnormality seen on CT, likely due to an old stroke. MRI negative and all symptoms almost resolved -Monitor vital signs, neurochecks every 4 hours -PT evaluation appreciated. The patient will need rehabilitation placement. -Continue aspirin, statin -Neurologic consultation appreciated. -2-D echocardiogram with EF of 55-60%, grade 1 diastolic dysfunction and moderate mitral valve regurgitation. -MRA neck shows high-grade stenosis in the origin of the brachiocephalic and left common carotid arteries. However as per neurology this is not the cause of her current symptoms so will defer this for outpatient follow-up and referral to a vascular surgeon. -Per neuro, if no particular cause of TIAs identified, neurology recommends outpatient cardiology evaluation to see if she will be a candidate for long- term registered nurse cardiac telemetry such as a Ling Q recorder. Rheumatoid arthritis Stable. Continue meloxicam and oral opiates. Tobacco abuse Advised smoking cessation. Will place on nicotine patch. HLD (hyperlipidemia) Seems to be controlled LDL is 50. Continue statin. Scoliosis With chronic back pain. Continue Mobic and Dilaudid which she gets as an outpatient. Left carotid artery stenosis Neck MRA shows high-grade stenosis in the origin of the brachiocephalic and left common carotid arteries. As per neurology recommendations this could be followed as an outpatient. Continue on Toprol therapy with aspirin. Leukocytosis Likely reactive. No signs of infection. Continue to monitor CBC. DVT prophylaxis: SCDs, heparin subcutaneous Discharge Planning Patient accepted to [facility] but will hold discharge at this time until patient evaluated by Dr. Walton or further evaluated by neurology in regards to confusion. Attending Statement The exam, history, and the medical decision-making described in the above note were completed with the assistance of the mid-level provider. I reviewed and agree with the findings presented. I attest that I had a [id number] encounter with the patient on the same day, and personally performed and documented my assessment and findings in the medical record. As per daughter, patient having hallucinations AAox3 but noted to have periods of delirium no neuro deficits S1S2 Patient with TIA - continue ASA, neuro recommendations carotid stenosis - outpatient referral to vascular surgery HTN - prn clonidine hallucinations - possibly due to drugs - DC nicotine patch. CT repeated and negative for acute issue Problem Qualifiers (1) Rheumatoid arthritis: Qualified Code: M06.9 - Rheumatoid arthritis, involving unspecified site, unspecified rheumatoid factor presence (2) Leukocytosis: Qualified Code: D72.829 - Leukocytosis, unspecified type Lilia Restrepo Dec 25, 2016 16:42 Tanvir Humphrey MD Dec 25, 2016 20:55
[2016-12-25] MEDS ORDERED: cloNIDine HCL 0.1 MG TAB PO PRN (21:00)
[2016-12-25] MEDS ORDERED: traZODone HCL 50 MG TAB PO ONE (23:00)
[2016-12-26] VITALS: PULSE 86
[2016-12-26 01:06] VITALS: BP 117/69; PULSE 66; RESP 24
[2016-12-26 04:00] VITALS: BP 127/71; PULSE 62; RESP 26; TEMP 98.4
[2016-12-26] MEDS: HEPARIN SODIUM - SQ 10,000 UNITS/ML VIAL SQ SCH ×2 (05:19→12:00)
[2016-12-26] MEDS: INSULIN ASPART SUPPLEMENTAL SCALE SQ SCH ×2 (06:17→11:00)
[2016-12-26 08:00] VITALS: BP 136/72; PULSE 76; RESP 17; TEMP 97.8; O2SAT 95
[2016-12-26] MEDS: SODIUM CHLORIDE 0.9% FLUSH 5 ML FLUSH IV FLUSH SCH (09:00)
[2016-12-26] MEDS: REMOVE OLD PATCH T-DERMAL SCH (09:00)
[2016-12-26] MEDS: PANTOPRAZOLE SOD 40 MG DELAYED RELEASE TAB PO SCH (09:38)
[2016-12-26] MEDS: PRAVASTATIN SOD 40 MG TAB PO SCH (09:38)
[2016-12-26] MEDS: ASPIRIN EC 325 MG TABEC PO SCH (09:38)
[2016-12-26] MEDS ORDERED: ASPI325T33 PO (11:07)
[2016-12-26] MEDS ORDERED: HYDR2TAB PO ×2 (11:07→17:06)
--- NOTE | 2016-12-26 11:08 | HHI.DS ---
Discharge Summary Admission Date Dec 23, 2016 at 18:38 Discharge Date: Dec 26, 2016 Admitting Diagnosis CVA (1) TIA (transient ischemic attack) ICD Code: G45.9 (2) Rheumatoid arthritis ICD Code: M06.9 (3) Tobacco abuse ICD Code: Z72.0 (4) HLD (hyperlipidemia) ICD Code: E78.5 (5) Scoliosis ICD Code: M41.9 (6) Left carotid artery stenosis ICD Code: I65.22 (7) Leukocytosis ICD Code: D72.829 Procedures None Brief History - From Admission This is a 76-year-old female with past medical history as below who presents to [facility] complaining of acute onset of numbness of the left side of her face have the left arm. The patient also states she felt weak on the left arm as she states that she could not climb up to her bed. The patient was last seen normal yesterday at 1 PM after her daughter who is at bedside during this interview, states left her in the house. The patient's daughter states that she return about 4 PM and noticed that her mother was hot and diaphoretic, however the recommendation was not on. At the time the patient's daughter noted some slurred speech and some left facial droop as well as difficulty ambulating. She decided then to bring the patient to the emergency department where she was evaluated by the emergency department by means of a CT of the head which is negative for acute stroke but had some findings consistent with an old stroke. They ED physician contacted the neurologist and because of the timeframe she was well outside of the window for TPA consideration or endovascular consideration as well. The patient is morning feels much better, weakness has substantially improved and states that the numbness has also subsided. Otherwise denies any palpitations, dizziness, double vision, blurry vision, chest pain, short of breath, dysuria, abdominal pain. The patient states she has diarrhea but this is chronic and it has been the same way for years. CBC/BMP: 12/25/16 0825 12/25/16 0825 Significant Findings Laboratory Tests Test 7/912/24/16 12/25/16 12/25/16 17:26 04:30 08:15 08:25 White Blood Count 13.5 TH/MM3 (4.0-11.0) Neutrophils (%) (Auto) 82.0 % (16.0-70.0) Lymphocytes (%) (Auto) 6.4 % (9.0-44.0) Basophils (%) (Auto) 4.7 % (0.0-2.0) Neutrophils # (Auto) 11.1 TH/MM3 (1.8-7.7) Lymphocytes # (Auto) 0.9 TH/MM3 (1.0-4.8) Basophils # (Auto) 0.6 TH/MM3 (0-0.2) Blood Urea Nitrogen 20 MG/DL (7-18) Estimat Glomerular Filtration 55 ML/MIN (>89) 64 ML/MIN (>89) Rate Random Glucose 110 MG/DL (74-106) Albumin 3.2 GM/DL 3.1 GM/DL (3.4-5.0) (3.4-5.0) HDL Cholesterol 67.5 MG/DL (40.0-60.0) Urine Glucose (UA) 250 mg/dL (NEG) Urine Occult Blood SMALL (NEG) Monocytes (%) (Auto) 9.0 % (0.0-8.0) Chloride Level 108 MEQ/L (98-107) Ammonia LESS THAN 10 MCMOL/L (11-32) Imaging Last Impressions Head CT 12/25/16 0807 Signed Impressions: Service Date/Time: Sunday, December 25, 2016 11:45 - CONCLUSION: Slight atrophic and small vessel ischemic changes without any evidence for acute hemorrhage or mass effect. Scar Do MD Neck Magnetic Resonance Angiography 12/23/161738 Signed Impressions: Service Date/Time: Friday, December 23, 2016 18:55 - CONCLUSION: 1. High grade stenoses in the origin of the brachiocephalic and left common carotid arteries. The origin of the left subclavian artery is not well visualized. 2. Mild plaque in both carotid bulbs with no significant stenosis. Drew Kiran MD Head Magnetic Resonance Angiography 12/23/161738 Signed Impressions: Service Date/Time: Friday, December 23, 2016 18:55 - CONCLUSION: Unremarkable exam. Drew Kiran MD Brain MRI 12/23/16 0802 Signed Impressions: Service Date/Time: Friday, December 23, 2016 18:55 - CONCLUSION: 1. Focal area of encephalomalacia and gliosis involving left frontal lobe corresponding to the abnormality on CT. 2. No acute hemorrhage, mass or infarction. Drew Kiran MD PE at Discharge GENERAL: Elderly well-developed patient in no apparent distress. CARDIOVASCULAR: Normal rate and irregular irregular rhythm. RESPIRATORY: No accessory muscle use. Clear to auscultation. Breath sounds equal bilaterally. GASTROINTESTINAL: Abdomen soft, non-tender, nondistended. MUSCULOSKELETAL: Swollen joints of the hands. No lower extremity edema bilaterally. NEUROLOGICAL: Awake and alert. Oriented to place, city, state, year, and president. She does not know the month. No definite facial droop although R lip appears slightly lower. Initially L arm appeared slightly weaker than R but upon subsequent evaluation strength in both arms is equal 5/5. 5/5 strength RLE. 4+/5 strength LLE. Normal speech. PSYCHIATRIC: Appropriate mood and affect. Pt update on day of discharge Patient reports feeling better. Wants to know when she can leave. No other concerns. Wants to go back to smoking. Hospital Course 76 Y/O female admitted an dtreated for the following: TIA (transient ischemic attack) This is a 76-year-old female with past medical history significant for peripheral vascular disease, arthritis, rheumatoid arthritis, tobacco abuse and hyperlipidemia who presents complaining of neurological symptoms consisting of left upper extremity numbness and left facial numbness associated with weakness which has completely resolved. CT of the head was negative for acute hemorrhage or mass effect. There is an apparent small area of decreased attenuation involving the left frontal lobe which could represent a small area of edema or be related to remote insult. MRI of the brain showed a focal area of encephalomalacia and gliosis involving left frontal lobe corresponding to the abnormality seen on CT, likely due to an old stroke. MRI negative and all symptoms almost resolved -Monitor vital signs, neurochecks every 4 hours -PT evaluation appreciated. The patient will need rehabilitation placement. -Continue aspirin, statin -Neurologic consultation appreciated. -2-D echocardiogram with EF of 55-60%, grade 1 diastolic dysfunction and moderate mitral valve regurgitation. -MRA neck shows high-grade stenosis in the origin of the brachiocephalic and left common carotid arteries. However as per neurology this is not the cause of her current symptoms so will defer this for outpatient follow-up and referral to a vascular surgeon. 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 Altered mental status Appear to be related to baseline dementia. Improved. Patient on pain medication chronically at home. Rheumatoid arthritis Stable. Continue meloxicam and oral opiates. Tobacco abuse Advised smoking cessation. Patient got more confused with Nicotine patch and she reports it does not work. HLD (hyperlipidemia) Seems to be controlled LDL is 50. Continue statin. Scoliosis With chronic back pain. Continue Dilaudid which she gets as an outpatient. DC Mobic. Left carotid artery stenosis Neck MRA shows high-grade stenosis in the origin of the brachiocephalic and left common carotid arteries. As per neurology recommendations this could be followed as an outpatient. Continue on Toprol therapy with aspirin. Leukocytosis Likely reactive. No signs of infection. Rheumatoid arthritis Stable. Continue oral opiates. Pt Condition on Discharge: Stable Discharge Disposition: Discharge to SNF Discharge Time: > 30 minutes Discharge Instructions DIET: Follow Instructions for: Heart Healthy Diet Activities you can perform: Regular-No Restrictions Follow up Referrals: Cardiology - 2 Weeks New Medications: Aspirin DR (Aspirin EC) 325 Mg Tabdr 325 MG PO DAILY #30 TAB Continued Medications: Hydromorphone (Hydromorphone) 2 Mg Tab 2 MG PO Q6H PRN PAIN #30 Ref 0 TAB (This prescription has been renewed) Lovastatin (Lovastatin) 20 Mg Tab 40 MG PO DAILY Cholesterol Management #30 Ref 0 TAB Multivitamin (One Daily Multivitamin) 1 Each Tablet Pantoprazole (Pantoprazole) 40 Mg Tab 40 MG PO DAILY Reflux #30 Ref 0 TAB Discontinued Medications: Dimenhydrinate (Travel Sickness) 50 Mg Tab 50 MG PO Q6H PRN VERTIGO Ref 0 TAB Diphenhydramine (Diphenhydramine) 25 Mg Cap 25 MG PO DAILY Allergies #1 Ref 0 CAP Meloxicam (Mobic) 7.5 Mg Tab 7.5 MG PO BID Pain Ref 0 TAB Potassium (Potassium) 99 Mg Tablet Montserrat Garcia MD Dec 26, 2016 11:08
== END 2016-12-26 14:50 | DRG 69 ==
LOC: PHED 16:49 → PHEDA 18:38 → PHICU 21:00 → PH3B 12-26 06:09
PROVIDERS: ADMIT Family Medicine; ATTEND Family Medicine
DX: G45.9 Transient cerebral ischemic attack, unspecified (principal); M06.9 Rheumatoid arthritis, unspecified; M41.9 Scoliosis, unspecified; F03.90 Unspecified dementia, unspecified severity, without behavioral disturbance, psychotic disturbance, mood disturbance, and anxiety; E78.5 Hyperlipidemia, unspecified; I73.9 Peripheral vascular disease, unspecified; M19.90 Unspecified osteoarthritis, unspecified site; R20.0 Anesthesia of skin; I65.22 Occlusion and stenosis of left carotid artery; G89.29 Other chronic pain; M54.9 Dorsalgia, unspecified; R19.7 Diarrhea, unspecified; F17.210 Nicotine dependence, cigarettes, uncomplicated; Z90.3 Acquired absence of stomach [part of]; Z86.73 Personal history of transient ischemic attack (TIA), and cerebral infarction without residual deficits
CPT/HCPCS: 70450; 70544; 70548; 70551; 80053; 80061; 81001; 82140; 82948; 83036; 84443; 85025; 85610; 85730; 93005; 93306; A9579; J1170; J1644; J1815; J7030